=== PATIENT | female | born 1955 | race Caucasian/White ===

== ENCOUNTER → 2019-03-02 | Outpatient (CLI) | payer OTHER ==
[~2019-03-02] MED LIST: ALDACTONE25 MG PO; ARTICHOKE; VITAMIN B-1100 M1; VITAMIN D3100 GM; ZANTAC
== END ==
LOC: M.RAD 13:21
DX: S22.22XD Fracture of body of sternum, subsequent encounter for fracture with routine healing (principal); S06.0X0D Concussion without loss of consciousness, subsequent encounter; I25.10 Atherosclerotic heart disease of native coronary artery without angina pectoris; M41.84 Other forms of scoliosis, thoracic region; X58.XXXD Exposure to other specified factors, subsequent encounter